=== PATIENT | female | born 1960 | race Caucasian/White ===

== ENCOUNTER → 2023-07-09 20:33 | Outpatient (REF) | payer OTHER, SELFPAY | LOC: MRI 20:33 | PROVIDERS: ATTENDING PHYSICIAN Physician Assistant Medical; FAMILY PHYSICIAN Family Medicine | DX: M54.50 Low back pain, unspecified (principal) | CPT/HCPCS: 73221 ==

== ENCOUNTER 2023-12-16 07:52 | Emergency (ER) | payer OTHER, SELFPAY ==
[2023-12-16 07:56] VITALS: BP 178/83
[2023-12-16 08:21] VITALS: BP 156/84
[2023-12-16 08:22] VITALS: BMI 21.6
[2023-12-16 08:23] VITALS: BP 156/84
--- NOTE | 2023-12-16 08:33 | ED.GENMED ---
History of Present Illness
<Queta Jimenez MD, Resident - Last Filed: 12/16/23 09:54>
General
Chief Complaint: Chest Pain
Time Seen by Provider: 12/16/23 08:03
History of Present Illness
History of Present Illness:
63-year-old female presented to the ED with mild nonradiating chest pain on the left side at 6 am when she woke. She describes as musculoskeletal rather than sharp or stabbing. She mentions mentions being under a lot of stress due to recent
passing of her close friends son from an overdose. Additionally the patient reports experiencing some numbness in her right shoulder since 5 to 6 days which she attributes to her focus on boxing. She believes that this can discomfort mildly
related to her exercise routine as she does not experience pain or weakness otherwise
Past History
<Queta Jimenez MD, Resident - Last Filed: 12/16/23 09:54>
Past History
ED Past Medical History: HTN
ED Past Surgical History: None
Social History
Tobacco: Non-smoker
Drug: None
Personal: ( had a vasectomy)
Living: with family
Employment: Employed
Family History
Family History: Hypertension and CAD
Review of Systems
<Queta Jimenez MD, Resident - Last Filed: 12/16/23 09:54>
Review of Systems
Cardiac: Reports chest pain
Phy Exam
<Queta Jimenez MD, Resident - Last Filed: 12/16/23 09:54>
General Physical Exam
General Presentation: well appearing and no apparent distress
Cardiovascular Exam
Cardiovascular Exam: regular rate/rhythm, no gallop and no murmur
Pulmonary Exam
Pulmonary Exam: lungs clear, no rales, no crackles, no rhonchi and no wheezing
Gastrointestinal Exam
Gastrointestinal Exam: normal bowel sounds, non tender, soft and non distended
Neurological Exam
Neurological Exam: alert, oriented x3 and no motor deficits
Scores
<Queta Jimenez MD, Resident - Last Filed: 12/16/23 09:54>
Heart Score for Chest Pain Patients
STEMI patient?: No
History: Slightly or Non-Suspicious
ECG: Normal
Age: >45 - <65 years
Risk Factors: 1 or 2 Risk Factors
Troponin: </= Normal Limit
Heart Score for Chest Pain Patients: 2
Heart Score Risk: 2.5% MACE over next 6 weeks
<Dante Quinones MD - Last Filed: 12/16/23 10:00>
Heart Score for Chest Pain Patients
Heart Score for Chest Pain Patients: 2
Heart Score Risk: 2.5% MACE over next 6 weeks
Course
<Queta Jimenez MD, Resident - Last Filed: 12/16/23 09:54>
Orders/Labs/Results
Orders:
Orders
12/16/23 07:59
ECG [Electrocardiogram (*1)] Urgent
Reason for Study: Chest Pain
EKG- Treatment ONCE
12/16/23 08:55
Basic Metabolic Panel Urgent
D-Dimer Urgent
Troponin I Urgent
12/16/23 08:57
CR Chest - 2 Views Urgent
Comment:
Reason For Exam: chest pain
Vital Signs
Initial and Last Documented VS:
Initial Vital Signs
Temp Pulse Resp BP Pulse Ox
97.7 F 55 18 178/83 99
12/16/23 07:56 12/16/23 07:56 12/16/23 07:56 12/16/23 07:56 12/16/23 07:56
Last Documented Vital Signs
Temp Pulse Resp BP Pulse Ox
97.7 F 53 17 160/82 99
12/16/23 07:56 12/16/23 09:00 12/16/23 09:00 12/16/23 09:00 12/16/23 08:25
<Dante Quinones MD - Last Filed: 12/16/23 10:00>
Orders/Labs/Results
Orders:
Orders
12/16/23 07:59
ECG [Electrocardiogram (*1)] Urgent
Reason for Study: Chest Pain
EKG- Treatment ONCE
12/16/23 08:55
Basic Metabolic Panel Urgent
D-Dimer Urgent
Troponin I Urgent
12/16/23 08:57
CR Chest - 2 Views Urgent
Comment:
Reason For Exam: chest pain
Vital Signs
Initial and Last Documented VS:
Initial Vital Signs
Temp Pulse Resp BP Pulse Ox
97.7 F 55 18 178/83 99
12/16/23 07:56 12/16/23 07:56 12/16/23 07:56 12/16/23 07:56 12/16/23 07:56
Last Documented Vital Signs
Temp Pulse Resp BP Pulse Ox
97.7 F 53 17 160/82 99
12/16/23 07:56 12/16/23 09:00 12/16/23 09:00 12/16/23 09:00 12/16/23 08:25
<Queta Jimenez MD, Resident - Last Filed: 12/16/23 09:54>
*Critical Care Note
Total Time (30-74mins, 75-104mins- exclusive of procedures): Not Applicable
<Queta Jimenez MD, Resident - Last Filed: 12/16/23 09:54>
Update Note
Update Note:
61-year-old female presented with left-sided chest pain which is nonradiating mild which started today at 6 AM. We will do a cardiac workup with troponin, BMP chest X ray , D-dimer. According to Wells criteria patient score 0. Differential
diagnosis #1 UT, #2 PE, #3 pneumonia
All the test results were unremarkable. Patient is stable and she is currently having no chest pain. Patient is stable enough to be discharged. Advised her to follow-up with orthopedics for her neuropathy of left shoulder.
ED Attending Note
<Queta Jimenez MD, Resident - Last Filed: 12/16/23 09:54>
-
Portions of this chart may have been created with voice recognition software.� Occasional wrong word or��sound alike� substitutions may have occurred due to the inherent limitations of voice recognition software.
<Dante Quinones MD - Last Filed: 12/16/23 10:00>
ED Attending Note
Patient seen and examined by attending physician: Yes
ED Attending Note:
Patient with history of hypertension on atenolol, ongoing right shoulder numbness sensation over the past 5 days, presents to ED secondary to sudden onset of left-sided chest pain, shortly upon waking up this morning. Chest pain described as
pressure, nonradiating, lasting 'seconds', with spontaneous resolution. Denies associated shortness of breath, dizziness, nausea, or diaphoresis. When she checked her blood pressure shortly afterwards, it was noted to be elevated on multiple
occasions, prompting visit to ED after checking her symptoms on the Internet. Denies back pain. Denies leg pain or swelling. Denies recent travel. Denies recent surgery. Denies family history of heart disease. Denies smoking or drinking
alcohol. Denies recent change in level activities, although patient is involved in kickboxing on routine basis. Denies neck pain. Denies weakness of right arm.
Physical Exam
General: no apparent distress, not acutely ill. afebrile.
Head: nc/at. eomi
Neck: supple. no meningeal signs.
Heart: s1/s2 regular rate and rhythm, no murmur. equal radial pulses.
Lungs: no acute respiratory distress. clear bilaterally
Abdomen: normal bowel sounds. not tender.
Neuro: alert and oriented. no focal neurological deficits
Skin: no rash
Psychiatric: well kept. interactive and cooperative
Extremities: no edema. no calf tenderness.
Patient with an unremarkable workup in ED, including blood work, EKG, chest x-ray, including D-dimer. History and exam inconsistent with acute coronary syndrome. Patient will be discharged home in stable condition, with recommendation to follow-up
with primary care physician for reevaluation, including potential referral to orthopedic surgeon, with nonspecific paresthesia noted in her right shoulder. Advised to return to ED with recurrent chest pain.
Discharge Plan
Departure
Patient Disposition: Home (Routine Discharge)
Date of Disposition: 12/16/23
Time of Disposition: 09:51
Patient with high blood pressure during this ER visit?: Yes
Discharge Problem:
Nonspecific chest pain
Prescriptions:
No Action
atenolol 25 MG tablet
25 mg PO DAILY
biotin 1 MG capsule
1 mg PO DAILY
Interventions
Interventions:
*Risk Screen - Suicide Last Done: 12/16/23 07:56
*General Assessment Last Done: 12/16/23 07:56
*Neglect/Abuse Screening Last Done: 12/16/23 07:56
ED- Fall Risk Assessment Last Done: 12/16/23 08:23
ED- Cardiac Assessment Last Done: 12/16/23 08:25
Discharge Date and Time
Print Language: OCCITAN
[2023-12-16 09:00] VITALS: BP 160/82
[2023-12-16 09:34] LABS: D-Dimer 0.41 ug/mlFEU (0.00-0.50)
[2023-12-16 09:35] LABS: Troponin I < 0.012 ng/ml
[2023-12-16 09:58] LABS: Blood Urea Nitrogen 16 mg/dl (7-17); Calcium 9.2 mg/dl (8.4-10.2); Carbon Dioxide 30 mmol/L (22-30); Chloride 105 mmol/L (98-107); Estimated Creatinine Clearance 70 ml/min; Glucose 91 mg/dl (70-99); Potassium 4.6 mmol/L (3.5-5.1); Sodium 139 mmol/L (135-145); eGFR > 60.00
== END 2023-12-16 10:09 | disposition home or self-care (01) ==
LOC: EMR 07:52
PROVIDERS: Student in an Organized Health Care Education/Training Program; EMERGENCY PHYSICIAN Emergency Medicine; FAMILY PHYSICIAN Family Medicine
DX: R07.89 Other chest pain (principal); I10 Essential (primary) hypertension; I25.10 Atherosclerotic heart disease of native coronary artery without angina pectoris; Z82.49 Family history of ischemic heart disease and other diseases of the circulatory system
CPT/HCPCS: 99283; 71046; 80048; 84484; 85379; 93005